=== PATIENT | female | born 1975 | race Caucasian/White ===

== ENCOUNTER 2017-12-01 12:52 | Emergency (ER) | payer OTHER ==
[2017-12-01 13:58] LABS: Absolute Lymphocytes (CBC) 1.4 K/uL (0.7-4.9); Absolute Monocytes 0.7 K/uL (0.1-1.3); Absolute Neutrophil 5.9 K/uL (1.8-8.0); Basophils % 0.5 % (0-1.3); Eosinophils % 0.7 % (0-4.4); Hematocrit 40.1 % (36.0-45.0); Lymphocytes % 16.8 % (15.3-44.8); MCH 28.3 pg (27.0-35.0); MCV 82.4 fL (80-100); MPV 8.5 fL (7.6-11.3); Monocytes % 8.9 % (3.3-12.3); RBC Red Blood Cell Count 4.86 M/uL (3.86-4.86)
[2017-12-01] MEDS ORDERED: METHYLPREDNISOLONE 125 MG INJ ONE (14:12)
[2017-12-01] MEDS ORDERED: ONDANSETRON 4 MG/2 ML VIAL ONE (14:12)
[2017-12-01] MEDS ORDERED: NA CHLORIDE 0.9% 1,000 ML ONE (14:12)
[2017-12-01 14:13] LABS: ALT/SGPT 33 U/L (12-78); AST/SGOT 23 U/L (15-37); Albumin 3.7 g/dL (3.4-5.0); Alkaline Phosphatase 77 U/L (45-117); BUN Blood Urea Nitrogen 15 mg/dL (7-18); Bicarbonate 28 mmol/L (21-32); Bilirubin Direct 0.1 mg/dL (0-0.2); Bilirubin Total 0.5 mg/dL (0.2-1.0); Glucose Level 91 mg/dL (74-106); Lipase 100 U/L (73-393); Potassium 3.6 mmol/L (3.5-5.1); Protein, Total 7.7 g/dL (6.4-8.2); Sodium Level 140 mmol/L (136-145); Troponin (Emerg Dept Use Only) < 0.02 ng/mL (0.0-0.045)
--- NOTE | 2017-12-01 14:31 | EKG ---
Test Date: 2017-12-01 Test Time: 13:16:59 Strings Teacher: ALONSO MEASUREMENT RESULTS: Intervals: Rate: 85 HI: 132 QRSD: 84 QT: 370 QTc: 440 [place]: P: 44 HI: 132 QRS: 43 T: 37 INTERPRETIVE STATEMENTS: Normal sinus rhythm Normal ECG No previous ECG available for comparison Electronically Signed On 12-01-17 14:31:05 CDT by Steffen Bernal
--- NOTE | 2017-12-01 14:50 | ER ---
Nurse's Notes [facility] Name: Myrtle Chavez Age: 42 yrs Sex: Female : 1975 Arrival Date: 12/01/2017 Time: 12:53 Bed 25 Private MD: Juan Jose Marroquin Diagnosis: Acute sinusitis;Nausea and vomiting Presentation: 12/01 12:56 Presenting complaint: Patient states: Chest discomfort, shortness of breath, sinus aj1 pressure, nasal congestion, and anxiety for the past month. She went to [facility], but they told her she needed to be seen in the emergency room. Transition of care: patient was not received from another setting of care. Onset of symptoms was October 2017. Risk Assessment: Do you want to hurt yourself or someone else? Patient reports no desire to harm self or others. Initial Sepsis Screen: Does the patient meet any 2 criteria? HR > 90 bpm. No. Patient's initial sepsis screen is negative. Does the patient have a suspected source of infection? No. Patient's initial sepsis screen is negative. Care prior to arrival: None. 12:56 Method Of Arrival: Ambulatory aj1 12:56 Acuity: FREDA 3 aj1 Triage Assessment: 12:59 General: Appears in no apparent distress. uncomfortable, Behavior is calm, cooperative, aj1 appropriate for age. Pain: Complains of pain in mid-sternal area Quality of pain is described as heavy. Neuro: Level of Consciousness is awake, alert, obeys commands. Cardiovascular: Denies chest pain, shortness of breath, Patient's skin is warm and dry. Respiratory: Airway is patent Respiratory effort is even, unlabored, Respiratory pattern is regular, symmetrical. 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 - Social history:: Smoking status: Patient/guardian denies using tobacco. - Ebola Screening: : Patient denies travel to an Ebola-affected area in the 21 days before illness onset. Screenin:27 Abuse screen: Denies threats or abuse. Denies injuries from another. Nutritional ph screening: No deficits noted. Tuberculosis screening: No symptoms or risk factors identified. Fall Risk None identified. Assessment: 13:53 General: Appears in no apparent distress. comfortable, well groomed, Behavior is calm, ph cooperative, appropriate for age. Pain: Complains of pain in chest Pain does not radiate. Quality of pain is described as pressure, Pain began " around a month ago ". Neuro: Level of Consciousness is awake, alert, obeys commands, Oriented to person, place, time, situation. Cardiovascular: Reports chest pain, nausea, shortness of breath, vomiting, Denies palpitations, syncope, Capillary refill < 3 seconds Patient's skin is warm and dry. Respiratory: Reports shortness of breath at rest Airway is patent Respiratory effort is even, unlabored, Respiratory pattern is regular, symmetrical. GI: Reports nausea, vomiting, Patient currently denies abdominal pain, diarrhea. : No signs and/or symptoms were reported regarding the genitourinary system. Derm: Skin is intact, is healthy with good turgor, Skin is pink, warm \\T\\ dry. Musculoskeletal: Circulation, motion, and sensation intact. Range of motion: intact in all extremities. 14:31 Reassessment: Patient appears in no apparent distress at this time. Patient and/or ph family updated on plan of care and expected duration. Pain level reassessed. Patient is alert, oriented x 3, equal unlabored respirations, skin warm/dry/pink. Pt resting quietly, continues to rate pain 3/10 and denies nausea at this time, VSS, SO at bedside. Vital Signs: 12:59 BP 154 / 107; Pulse 105; Resp 20; Temp 98.0; Pulse Ox 100% on R/A; Weight 77.11 kg (R); aj1 Height 4 ft. 11 in. (149.86 cm) (R); Pain 3/10; 13:58 BP 126 / 101; Pulse 90; Resp 18; Pulse Ox 98% on R/A; ph 14:32 BP 112 / 73; Pulse 80; Resp 16; Pulse Ox 97% on R/A; Pain 3/10; ph 12:59 Body Mass Index 34.34 (77.11 kg, 149.86 cm) aj1 ED Course: 12:53 Patient arrived in ED. sb2 12:54 Juan Jose Marroquin MD is Private Physician. sb2 12:58 Triage completed. aj1 12:59 Yarelis Valenzuela FNP-C is [facility]. kb 12:59 Miguel Hassan MD is Attending Physician. kb 12:59 Arm band placed on Patient placed in an exam room. aj1 13:18 EKG done, by circuit board repair technician. reviewed by Yarelis SHAW. sm3 13:20 Pauline Haile, RN is Primary Nurse. ph 13:28 Patient has correct armband on for positive identification. Placed in gown. Bed in low ph position. Call light in reach. Side rails up X 1. panel monitor on. Pulse ox on. NIBP on. Warm blanket given. 13:56 Inserted saline lock: 22 gauge in left wrist, using aseptic technique. Blood collected. ph Missed attempt(s): 22 gauge in left in right Bleeding controlled, band aid applied, catheter tip intact. Patient maintains SpO2 saturation greater than 95% on room air. 14:18 X-ray completed. Portable x-ray completed in exam room. Patient tolerated procedure sw well. 14:19 Chest Single View XRAY In Process Unspecified. EDMS 15:14 No provider procedures requiring assistance completed. IV discontinued, intact, ph bleeding controlled, No redness/swelling at site. Pressure dressing applied. Administered Medications: 14:11 Drug: NS 0.9% 1000 ml Route: IV; Rate: 1000 ml; Site: left wrist; ph 15:06 Follow up: Response: No adverse reaction; IV Status: Completed infusion ph 14:11 Drug: Zofran 4 mg Route: IVP; Site: left wrist; ph 15:10 Follow up: Response: No adverse reaction ph 14:11 Drug: SOLU-Medrol 125 mg Route: IVP; Site: left wrist; ph 15:11 Follow up: Response: No adverse reaction ph 15:06 Drug: Augmentin 875 mg Route: PO; ph 15:12 Follow up: Response: Medication administered at discharge. ph Outcome: 14:49 Discharge ordered by . kb 15:14 Discharged to home ambulatory, with significant other. ph 15:14 Condition: good 15:14 Discharge instructions given to patient, Instructed on discharge instructions, follow up and referral plans. medication usage, Demonstrated understanding of instructions, follow-up care, medications, Prescriptions given X 3. 15:15 Patient left the ED. ph Signatures: Dispatcher [employer] EDMS Nicolas, Yarelis, CELLAR SUPERVISOR-C CELLAR SUPERVISOR-Carla Xie, RN RN aj1 Pauline Haile RN RN ph Frannie Pacheco Sheri sb2 Gabriela Orozco sm3 Corrections: (The following items were deleted from the chart) 14:12 14:11 Zofran 4 mg IVP in left antecubital ph ph
--- NOTE | 2017-12-01 14:50 | EDPHYS ---
Physician Documentation [facility] Name: Myrtle Chavez Age: 42 yrs Sex: Female : 1975 Arrival Date: 12/01/2017 Time: 12:53 Bed 25 Private MD: Juan Jose Marroquin ED Physician Miguel Hassan HPI: 12/01 13:21 This 42 yrs old Female presents to ER via Ambulatory with complaints of Chest kb Pressure, Shortness Of Breath. 13:21 The patient or guardian reports difficulty breathing, flu symptoms. Onset: The kb symptoms/episode began/occurred 1 month(s) ago. Severity of symptoms: At their worst the symptoms were moderate, in the emergency department the symptoms are unchanged. Modifying factors: The symptoms are alleviated by nothing, the symptoms are aggravated by nothing. Associated signs and symptoms: Pertinent positives: chest pain, earache, fever, nausea, rhinorrhea, sore throat, vomiting, Pertinent negatives: diarrhea. The patient has not experienced similar symptoms in the past. The patient has been recently seen at an urgent care, just prior to arrival, for similar complaints, and was sent to the [facility] Emergency Department for further evaluation. Pt reports sinus congestion and pressure for a month, chest pressure and shortness of breath for a few weeks, nausea and vomiting for 3 days, stress and anxiety for a week due to work. States I threw up at work today and a meeting was cancelled so I went to urgent care to get checked out. "They took my vitals and said I had to come be seen at the ER, they couldn't see me.". 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 - Social history:: Smoking status: Patient/guardian denies using tobacco. - Ebola Screening: : Patient denies travel to an Ebola-affected area in the 21 days before illness onset. ROS: 13:19 Neck: Negative for injury, pain, and swelling, Back: Negative for injury and pain, : kb Negative for injury, bleeding, discharge, and swelling, MS/Extremity: Negative for injury and deformity, Skin: Negative for injury, rash, and discoloration, Neuro: Negative for headache, weakness, numbness, tingling, and seizure. 13:19 Constitutional: Positive for body aches, chills, fatigue, fever, malaise, Negative for poor PO intake, weight loss. 13:19 ENT: Positive for ear pain, rhinorrhea, sinus congestion, sinus pain, sore throat. 13:19 Cardiovascular: Positive for chest pain, Negative for edema, orthopnea, palpitations, paroxysmal nocturnal dyspnea. 13:19 Respiratory: Positive for shortness of breath. 13:19 Abdomen/GI: Positive for nausea and vomiting, Negative for abdominal pain, diarrhea, constipation, abdominal cramps, abdominal distension, anorexia. Exam: 13:20 Constitutional: This is a well developed, well nourished patient who is awake, alert, kb and in no acute distress. Head/Face: Normocephalic, atraumatic. Neck: Trachea midline, no thyromegaly or masses palpated, and no cervical lymphadenopathy. Supple, full range of motion without nuchal rigidity, or vertebral point tenderness. No Meningismus. Chest/axilla: Normal chest wall appearance and motion. Nontender with no deformity. No lesions are appreciated. Cardiovascular: Regular rate and rhythm with a normal S1 and S2. No gallops, murmurs, or rubs. Normal PMI, no JVD. No pulse deficits. Respiratory: Lungs have equal breath sounds bilaterally, clear to auscultation and percussion. No rales, rhonchi or wheezes noted. No increased work of breathing, no retractions or nasal flaring. Abdomen/GI: Soft, non-tender, with normal bowel sounds. No distension or tympany. No guarding or rebound. No evidence of tenderness throughout. Skin: Warm, dry with normal turgor. Normal color with no rashes, no lesions, and no evidence of cellulitis. MS/ Extremity: Pulses equal, no cyanosis. Neurovascular intact. Full, normal range of motion. Neuro: Awake and alert, GCS 15, oriented to person, place, time, and situation. Cranial nerves II-XII grossly intact. Motor strength 5/5 in all extremities. Sensory grossly intact. Cerebellar exam normal. Normal gait. 13:20 ENT: External ear(s): are unremarkable, Ear canal(s): are normal, TM's: fluid levels, on the right, Examination of the other ear shows no obvious abnormality, Nose: is normal, Mouth: is normal, Posterior pharynx: is normal. Vital Signs: 12:59 BP 154 / 107; Pulse 105; Resp 20; Temp 98.0; Pulse Ox 100% on R/A; Weight 77.11 kg (R); aj1 Height 4 ft. 11 in. (149.86 cm) (R); Pain 3/10; 13:58 BP 126 / 101; Pulse 90; Resp 18; Pulse Ox 98% on R/A; ph 14:32 BP 112 / 73; Pulse 80; Resp 16; Pulse Ox 97% on R/A; Pain 3/10; ph 12:59 Body Mass Index 34.34 (77.11 kg, 149.86 cm) aj1 MDM: 13:00 Patient medically screened. kb 13:20 Data reviewed: vital signs, nurses notes. Data interpreted: Pulse oximetry: on room air kb is 100 %. Interpretation: normal. 14:31 Counseling: I had a detailed discussion with the patient and/or guardian regarding: the kb historical points, exam findings, and any diagnostic results supporting the discharge/admit diagnosis, lab results, radiology results, the need for outpatient follow up, a family practitioner, to return to the emergency department if symptoms worsen or persist or if there are any questions or concerns that arise at home. 12/01 13:18 Order name: Basic Metabolic Panel; Complete Time: 14:15 kb 12/01 13:18 Order name: CBC with Diff; Complete Time: 14:30 kb 12/01 13:18 Order name: Hepatic Function; Complete Time: 14:15 kb 12/01 13:18 Order name: Lipase; Complete Time: 14:15 kb 12/01 13:18 Order name: Troponin (emerg Dept Use Only); Complete Time: 14:15 kb 12/01 13:18 Order name: Chest Single View XRAY; Complete Time: 14:57 kb 12/01 13:18 Order name: IV Saline Lock; Complete Time: 14:19 kb 12/01 13:18 Order name: Labs collected and sent; Complete Time: 14:19 kb 12/01 13:18 Order name: EKG; Complete Time: 13:21 kb 12/01 13:18 Order name: EKG - Nurse/Tech; Complete Time: 13:23 kb Administered Medications: 14:11 Drug: NS 0.9% 1000 ml Route: IV; Rate: 1000 ml; Site: left wrist; ph 15:06 Follow up: Response: No adverse reaction; IV Status: Completed infusion ph 14:11 Drug: Zofran 4 mg Route: IVP; Site: left wrist; ph 15:10 Follow up: Response: No adverse reaction ph 14:11 Drug: SOLU-Medrol 125 mg Route: IVP; Site: left wrist; ph 15:11 Follow up: Response: No adverse reaction ph 15:06 Drug: Augmentin 875 mg Route: PO; ph 15:12 Follow up: Response: Medication administered at discharge. ph Disposition: 17:11 Co-signature as Attending Physician, Miguel Hassan MD. rn Disposition: 12/01/17 14:49 Discharged to Home. Impression: Acute sinusitis, Nausea and vomiting. - Condition is Stable. - Discharge Instructions: Sinusitis, Adult, [id number], Nausea and Vomiting, Adult, [id number]. - Prescriptions for Augmentin 875- 125 mg Oral Tablet - take 1 tablet by ORAL route every 12 hours for 7 days; 14 tablet. Prednisone 20 mg Oral Tablet - take 1 tablet by ORAL route once daily for 5 days; 5 tablet. Zofran 4 mg Oral Tablet - take 1 tablet by ORAL route every 6 hours As needed; 20 tablet. - Work release form, Medication Reconciliation Form, Thank You Letter, Antibiotic Education, Prescription Opioid Use form. - Follow up: Emergency Department; When: As needed; Reason: Worsening of condition. Follow up: Private Physician; When: 2 - 3 days; Reason: Recheck today's complaints, Continuance of care, Re-evaluation by your physician. Signatures: Dispatcher [employer] Yarelis Clemons, VALERIA PHIPPSP-Carla Xie RN RN aj1 Miguel Hassan MD MD rn Hall, Patricia, RN RN ph Corrections: (The following items were deleted from the chart) 15:15 14:49 12/01/2017 14:49 Discharged to Home. Impression: Acute sinusitis; Nausea and ph vomiting. Condition is Stable. Discharge Instructions: Sinusitis, Adult, [id number], Nausea and Vomiting, Adult, [id number]. Prescriptions for Augmentin 875-125 mg Oral Tablet - take 1 tablet by ORAL route every 12 hours for 7 days; 14 tablet, Prednisone 20 mg Oral Tablet - take 1 tablet by ORAL route once daily for 5 days; 5 tablet, Zofran 4 mg Oral Tablet - take 1 tablet by ORAL route every 6 hours As needed; 20 tablet. and Forms are Medication Reconciliation Form, Thank You Letter, Antibiotic Education, Prescription Opioid Use. Follow up: Emergency Department; When: As needed; Reason: Worsening of condition. Follow up: Private Physician; When: 2 - 3 days; Reason: Recheck today's complaints, Continuance of care, Re-evaluation by your physician. kb
--- NOTE | 2017-12-01 14:57 | RAD REPORT ---
EXAM DESCRIPTION: RAD - Chest Single View - 12/01/2017 2:20 pm CLINICAL HISTORY: Chest pain, shortness of breath COMPARISON: None. TECHNIQUE: AP portable chest image was obtained 1415 hours . FINDINGS: Lungs are clear. Heart and vasculature are normal. No measurable pleural effusion and no p neumothorax. No gross bony abnormality seen. No acute aortic findings. Single lead left subclavian pa cemaker in place. IMPRESSION: No acute cardiopulmonary process.
[2017-12-01] MEDS ORDERED: AMOX/K CLAV 875 MG TAB ONE (15:06)
== END 2017-12-01 15:15 | disposition home or self-care (01) ==
LOC: ER 12:52
DX: J01.90 Acute sinusitis, unspecified (principal); R11.2 Nausea with vomiting, unspecified; Z95.0 Presence of cardiac pacemaker
CPT/HCPCS: 36415; 71045; 80048; 80076; 83690; 84484; 85025; 93005; 96361; 96374; 96375; 99285; J2405; J2930; J7030